=== PATIENT | female | born 1980 | race Caucasian/White ===

== ENCOUNTER 2017-02-25 13:07 | Emergency (ER) | payer MEDICARE, OTHER ==
[2017-02-25] MEDS ORDERED: KETOROLAC TROMETHAMINE 60 MG/2 ML VIAL IM ONE (13:29)
[2017-02-25 13:45] LABS: APPEARANCE,URINE CLEAR (CLEAR); COLOR,URINE YELLOW (YELLOW)
[2017-02-25 13:46] LABS: OCCULT BLOOD,URINE TRACE-INTACT (NEGATIVE); PH URINE 6.5 (5.0 - 8.0); UROBILINOGEN URINE 0.2 Eu (0.2-1.0)
[2017-02-25 13:49] LABS: BASOPHILS % 0.4 (0.0-1.5); EOSINOPHILS % 3.2 % (0.0-6.8); MEAN CORPUSCULAR HEMOGLOBIN 29.2 pg (28.0-34.0); MONOCYTES % 4.1 % (0.0-11.0); NEUTROPHILS # 7.3 # k/uL (1.4-7.7)
[2017-02-25 14:10] LABS: eGFR (African) > 60; eGFR (Non-African) > 60
[2017-02-25] MEDS ORDERED: HYDROcodone /APAP 5/325 1 EACH TABLET PO ONE (14:47)
[2017-02-25] MEDS ORDERED: SULFAMETHOXAZOLE/TRIMETHOPRIM 1 EACH TABLET PO ONE (14:47)
--- NOTE | 2017-02-25 14:56 | ED Physician Documentation ---
Abdominal Pain - HISTORIAN Historian: patient - HPI Stated Complaint: Left groin pain Chief Complaint: Abdominal Pain Onset: days ago (10) Duration: sudden-onset, persistent Timing: still present Context: denies: out of country travel, bad food, recent trauma Severity: moderate Quality: burning (with urination) Front/Back of Body, Lg (Color): 1 - pain Associated Symptoms: other (urgency and increased frequency of urination) Relieved by: nothing Further Comments: no - ROS CONST: no problems GI/: other (burning, urgency asnd frequency of urination) CVS/RESP: none EYES/ENT: none MS/SKIN/LYMPH: none NEURO/PSYCH: none - SOCIAL HX Smoking History: cigarettes Alcohol Use: occasionally Drug Use: none - FAMILY HX Family History: no significant history - PAST HX Past History: other (anxiety, bipolar, hyperlipidemia) Ischemic Bowel Risk Factors: none Other History: none Surgeries/Procedures: BLT, other (ortho, angiography) Immunizations: referred to PCP Home Medications: Ambulatory Orders Medication Instructions Recorded Phenazopyridine HCl [Pyridium] 200 mg PO TID #14 tablet 02/25/17 Sulfamethoxazole/Trimethoprim 1 each PO BID #20 tab 02/25/17 [Bactrim Ds] Allergies/Adverse Reactions: Allergies Allergy/AdvReac Type Severity Reaction Status Date / Time Latex, Natural Rubber Allergy Verified 02/25/17 14:52 Penicillins Allergy Verified 02/25/17 14:52 - VITAL SIGNS Vital Signs: Vital Signs Temp Pulse Resp BP Pulse Ox 98.4 F 74 18 109/74 98 02/25/17 15:08 02/25/17 15:08 02/25/17 15:08 02/25/17 15:08 02/25/17 15:08 - REVIEWED ASSESSMENTS Nursing Assessment Reviewed: Yes Vitals Reviewed: Yes Progress - Results/Orders Results/Orders: cbc, cmp, ua, ct abdomen/pelvis ordered - Progress Progress: pt. given bactrim ds 1 p.o. x 12, toradol 60 mg im and vicodin 5/325 mg p.o. in er with improvement in pain Critical Care Note - Critical Care Note Total Time (mins): 0 ED Results Lab/Radiology - Lab Results Lab Results: Lab Results 02/25/17 02/25/17 02/25/17 13:45 13:45 13:20 WBC 10.90 K/ul K/ul (4.00-12.00) RBC 4.57 M/ul M/ul (3.90-5.20) Hgb 13.3 g/dL g/dL (12.0-16.0) Hct 38.8 % % (34.5-46.5) MCV 85.0 fl fl (80.0-100.0) MCH 29.2 pg pg (28.0-34.0) MCHC 34.4 g/dL g/dL (30.0-36.0) RDW 14.2 % % (11.3-14.3) Plt Count 229 K/mm3 K/mm3 (130-400) Neut % (Auto) 67.4 % % (39.0-79.0) Lymph % (Auto) 23.8 % % (16.0-50.0) [place] % (Auto) 4.1 % % (0.0-11.0) Eos % (Auto) 3.2 % % (0.0-6.8) Baso % (Auto) 0.4 (0.0-1.5) Neut # (Auto) 7.3 # k/uL # k/uL (1.4-7.7) Lymph # (Auto) 2.6 # k/uL # k/uL (0.6-4.0) [place] # (Auto) 0.4 # k/uL # k/uL (0.0-0.9) Eos # (Auto) 0.3 # k/uL # k/uL (0.0-0.6) Baso # (Auto) 0.0 # k/uL # k/uL (0.0-0.5) Reactive Lymphs % 1.0 % % (0.0-5.0) Reactive Lymphs # 0.1 # k/uL # k/uL (0.0-0.8) Sodium 139 mmol/L mmol/L (136-145) Potassium 3.6 mmol/L mmol/L (3.5-5.0) Chloride 106 mmol/L mmol/L (98-110) Carbon Dioxide 24 mmol/L mmol/L (20-32) BUN 11 mg/dL mg/dL (10-26) Creatinine 0.8 mg/dL mg/dL (0.4-1.5) Estimated Creat Clear 192 Est GFR ( Amer) > 60 (60 - ) Est GFR (Non-Af Amer) > 60 (60 - ) Glucose 182 mg/dL H mg/dL (70-99) Calcium 9.0 mg/dL mg/dL (8.5-10.5) Total Bilirubin 0.3 mg/dL mg/dL (0.2-1.2) AST 21 U/L U/L (0-41) ALT 21 U/L U/L (0-45) Alkaline Phosphatase 63 U/L U/L (46-116) Total Protein 7.3 g/dL g/dL (6.0-8.5) Albumin 4.1 g/dL g/dL (3.0-5.5) Urine Color Urine Appearance Urine pH Ur Specific [place] Urine Protein Urine Ketones Urine Occult Blood Urine Nitrite Urine Bilirubin Urine Urobilinogen Ur Leukocyte Esterase Urine Glucose Urine HCG, Qual Negative (NEGATIVE) 02/25/17 13:20 WBC RBC Hgb Hct MCV MCH MCHC RDW Plt Count Neut % (Auto) Lymph % (Auto) [place] % (Auto) Eos % (Auto) Baso % (Auto) Neut # (Auto) Lymph # (Auto) [place] # (Auto) Eos # (Auto) Baso # (Auto) Reactive Lymphs % Reactive Lymphs # Sodium Potassium Chloride Carbon Dioxide BUN Creatinine Estimated Creat Clear Est GFR ( Amer) Est GFR (Non-Af Amer) Glucose Calcium Total Bilirubin AST ALT Alkaline Phosphatase Total Protein Albumin Urine Color Yellow (YELLOW) Urine Appearance Clear (CLEAR) Urine pH 6.5 (5.0 - 8.0) Ur Specific [place] 1.025 (1.010-1.030) Urine Protein 1+ mg/dL H mg/dL (NEGATIVE) Urine Ketones Negative mg/dL mg/dL (NEGATIVE) Urine Occult Blood Trace-intact H (NEGATIVE) Urine Nitrite Negative (NEGATIVE) Urine Bilirubin Negative (NEGATIVE) Urine Urobilinogen 0.2 Eu Eu (0.2-1.0) Ur Leukocyte Esterase 1+ H (NEGATIVE) Urine Glucose Negative mg/dL mg/dL (NEGATIVE) Urine HCG, Qual - Radiology Radiology Impressions: ct abdomen/pelvis neg - Orders Orders: ED Orders Category Date Time Status CT ABD & PELVIS W/O CON Stat Exams 02/25/17 Completed CBC/PLATELET/DIFF Routine Lab 02/25/17 13:45 Completed CMP Routine Lab 02/25/17 13:45 Completed UA MACRO DIP ONLY Routine Lab 02/25/17 13:20 Completed URINE CULTURE Routine Lab 02/25/17 13:20 Received URINE HCG Routine Lab 02/25/17 13:20 Completed HYDROcodone /APAP 5/325 [[place] 5/325] Med 02/25/17 14:47 Discontinued 1 each PO NOW ONE Ketorolac Tromethamine [Toradol] Med 02/25/17 13:29 Discontinued 60 mg IM NOW ONE Sulfamethoxazole/Trimethoprim [Bactrim Ds] Med 02/25/17 14:47 Discontinued 1 each PO NOW ONE Abdominal Pain Physical Exam - Physical Exam General Appearance: alert, mild distress EENT: eye inspection normal, ENT inspection normal, pharynx normal, no signs of dehydration, BETSY, no nystagmus, TM's nml NECK: normal inspection, thyroid normal, supple RESPIRATORY: no resp distress, chest non-tender, breath sounds normal CVS: reg rate & rhythm, heart sounds normal, equal pulses, no murmur, no gallop , PMI nml, no JVD, no friction rub ABDOMEN: soft, no organomegaly, normal bowel sounds, tenderness (left lower quadrant and suprapubic area). No: guarding BACK: normal inspection, no CVA tenderness SKIN: warm/dry, normal color EXTREMITIES: non-tender, normal range of motion, no evidence of injury, no edema NEURO: oriented X3, CN's nml as tested, motor nml, sensation nml, mood/affect nml, cognition normal Vital Signs: Vital Signs Temp Pulse Resp BP Pulse Ox 98.4 F 74 18 109/74 98 02/25/17 15:08 02/25/17 15:08 02/25/17 15:08 02/25/17 15:08 02/25/17 15:08 Discharge Clincal Impression: Urinary tract infection Qualifiers: Urinary tract infection type: acute cystitis Hematuria presence: with hematuria Qualified Code(s): N30.01 - Acute cystitis with hematuria Prescriptions: Phenazopyridine HCl [Pyridium] 200 mg PO TID #14 tablet Sulfamethoxazole/Trimethoprim [Bactrim Ds] 1 each PO BID #20 tab Referrals: Primary Doctor,No [Primary Care Provider] - 2 Days Home Medications: Ambulatory Orders Phenazopyridine HCl [Pyridium] 200 mg PO TID #14 tablet 02/25/17 Sulfamethoxazole/Trimethoprim [Bactrim Ds] 1 each PO BID #20 tab 02/25/17 Comments: Discharged with scripts for Bactrim DS 1 pill twice daily for 10 days and Pyridium 200 mg p.o. tid for 5 days. Condition: Stable Disposition: 01 HOME, SELF-CARE Decision to Admit: NO Decision Time: 14:46
[2017-02-25 15:10] VITALS: BP 109/74
--- NOTE | 2017-02-25 15:17 | Diagnostic Imaging Report ---
RAFFI DICKENS [facility] [address] [facility] [address] [place], [place]. [address] Report Submission Date: Feb 25, 2017 2:27:34 PM CDT Patient Study Name: ELLY GIRON Date: Feb 25, 2017 1:54:07 PM CDT Modality Type: CT\SR Gender: F Description: CT ABD & PELVIS W/O CO : 80 Institution: [facility] Physician: RAFFI DICKENS Examination: CT Abdomen/pelvis History: Abdominal discomfort Comparison exams: None available Technique: CT Abdomen/pelvis without contrast protocol. Findings: Liver, spleen, adrenal glands, kidneys, and pancreas are without irregularity. Surgical clips gallbladder fossa. Kidneys and ureters without suspicious calcification. No abnormal dilation of the ureters. Abdominal aorta with mild peripheral atherosclerotic disease. No abnormal dilation. Cardiac silhouette not enlarged. Bowel without contrast limiting evaluation. No evidence for acute mesenteric inflammation or free air. Stool throughout the large bowel limiting sensitivity. Appendix is identified and is without adjacent inflammation. Sigmoid diverticula. No adjacent inflammation. Osseous structures demonstrate degenerative changes. Likely old pubic symphysis fracture. Lung bases demonstrate mild right middle lobe linear infiltrates. No effusion Impression: No abdominal mass or acute inflammatory process. Sigmoid diverticulosis. No evidence for acute diverticulitis. No renal or ureteral calcification. No abnormal bowel dilation. Mild right middle lobe infiltrate. Electronically signed on Feb 25, 2017 2:27:34 PM CDT by: Elgin JANSEN
== END 2017-02-25 15:08 | disposition home or self-care (01) ==
LOC: ED 13:07
DX: N30.01 Acute cystitis with hematuria (principal)
CPT/HCPCS: 74176; 80053; 81002; 81025; 85025; 87086; A9270; J1885; 96372; 99283

== ENCOUNTER 2017-03-05 11:44 | Outpatient (CLI) | payer MEDICARE, OTHER ==
[2017-03-05 12:03] LABS: BASOPHILS % 0.4 (0.0-1.5); EOSINOPHILS % 4.7 % (0.0-6.8); MEAN CORPUSCULAR HEMOGLOBIN 28.9 pg (28.0-34.0); MEAN CORPUSCULAR VOLUME 83.7 fl (80.0-100.0); MONOCYTES % 3.5 % (0.0-11.0); NEUTROPHILS # 6.8 # k/uL (1.4-7.7)
[2017-03-05 12:30] LABS: eGFR (African) > 60; eGFR (Non-African) > 60
== END 2017-03-05 11:45 ==
LOC: LAB 11:44
PROVIDERS: ATTEND Nurse Practitioner Family
DX: N94.4 Primary dysmenorrhea (principal)
CPT/HCPCS: 36415; 80053; 84439; 84443; 84703; 85025; 85610; 85730

== ENCOUNTER 2017-03-11 09:39 | Outpatient (CLI) | payer MEDICARE, OTHER ==
--- NOTE | 2017-03-11 13:47 | Diagnostic Imaging Report ---
LONNIE ALMONTE (TILTROTOR CREW CHIEF) - OP [facility] [address] [facility] [address] [place], [place]. [address] Report Submission Date: Mar 11, 2017 12:19:40 PM CDT Patient Study Name: ELLY GIRON Date: Mar 11, 2017 10:06:19 AM CDT Modality Type: US Gender: F Description: TRANSVAGINAL PELVIS : 80 Institution: [facility] Physician: LONNIE ALMONTE (TILTROTOR CREW CHIEF) - OP Examination: Ultrasound pelvis History: Dysfunctional uterine bleeding Comparison exams: None available Findings: Transabdominal imaging is limited due to body habitus. Sonographic evaluation of the pelvis demonstrates uterus measuring 7.9 x 4.3 x 6.0 cm. Myometrium without gross regularity. Endometrial complex measures from 5.9 to 10.4 mm. Right ovary measures 3.0 x 2.8 x 2.6 cm. Left ovary measures 3.7 x 2.4 x 3.0 cm. Normal flow on Doppler analysis. Ovarian follicles. Impression: Prominent endometrial complex - correlate with patient's metal cycle. No evidence for pelvic mass or lesion. No myometrial abnormality. No torsion. Electronically signed on Mar 11, 2017 12:19:40 PM CDT by: Elgin JANSEN
== END 2017-03-11 09:40 ==
LOC: RAD 09:39
PROVIDERS: ATTEND Nurse Practitioner Family
DX: N93.8 Other specified abnormal uterine and vaginal bleeding (principal)
CPT/HCPCS: 76830; 76856

== ENCOUNTER 2017-03-16 11:43 | Outpatient (CLI) | payer MEDICARE, OTHER | END 2017-03-16 11:44 | LOC: CARD 11:43 | PROVIDERS: ATTEND Internal Medicine Cardiovascular Disease | DX: R07.89 Other chest pain (principal); R55 Syncope and collapse; I10 Essential (primary) hypertension; E78.5 Hyperlipidemia, unspecified; E11.9 Type 2 diabetes mellitus without complications; F17.210 Nicotine dependence, cigarettes, uncomplicated; G47.30 Sleep apnea, unspecified | CPT/HCPCS: G0463 ==

== ENCOUNTER 2017-03-24 13:43 | Outpatient (CLI) | payer MEDICARE, OTHER ==
--- NOTE | 2017-03-24 18:43 | Diagnostic Imaging Report ---
LONNIE ALMONTE (INVESTOR RELATIONS SPECIALIST) - OP [facility] [address] [facility].[address] [address] Report Submission Date: Mar 24, 2017 2:55:35 PM CDT Patient Study Name: ELLY GIRON Date: Mar 24, 2017 2:22:00 PM CDT Modality Type: CR Gender: F Description: PELVIS : 80 Institution: [facility] Physician: LONNIE ALMONTE (INVESTOR RELATIONS SPECIALIST) - OP Examination: Plain film pelvis History: Fall Comparison exams: CT scan from 25 February 2017 Findings: Single view of the pelvis demonstrates normal mineralization. Old appearing deformity involving the pubic symphysis/right pubic rami. Remaining cortical margins are without irregularity. No soft tissue abnormality. Impression: No acute pelvis osseous process. Presumed old pubic symphysis/right pubic rami fracture: present on the CT scan from 25 February 2017. Electronically signed on Mar 24, 2017 2:55:35 PM CDT by: Elgin JANSEN
--- NOTE | 2017-03-24 18:44 | Diagnostic Imaging Report ---
LONNIE ALMONTE (TECHNOLOGY APPLICATIONS CONSULTANT) - OP [facility] [place] [facility] [address] [facility].[address] [address] Report Submission Date: Mar 24, 2017 2:45:20 PM CDT Patient Study Name: ELLY GIRON Date: Mar 24, 2017 1:54:08 PM CDT Modality Type: CR Gender: F Description: SPINE : 80 Institution: [facility] [place] [facility] Physician: LONNIE ALMONTE (TECHNOLOGY APPLICATIONS CONSULTANT) - OP Examination: Plain film lumbar spine History: Fall Findings: 3 views of the lumbar spine demonstrate normal height. No anterior compression. Anterior osteophytes. Fcat degenerative changes. No soft tissue abnormalities. Impression: Degenerative changes. No compression deformity. Electronically signed on Mar 24, 2017 2:45:20 PM CDT by: Elgin JANSEN
--- NOTE | 2017-03-24 18:45 | Diagnostic Imaging Report ---
LONNIE ALMONTE (ROLLER STRUCTURAL MILL) - OP [facility] [address] [facility] [address] [address] Report Submission Date: Mar 24, 2017 3:00:51 PM CDT Patient Study Name: ELLY GIRON Date: Mar 24, 2017 1:57:59 PM CDT Modality Type: CR Gender: F Description: PELVIS : 80 Institution: [facility] Physician: LONNIE ALMONTE (ROLLER STRUCTURAL MILL) - OP Examination: Plain film sacroiliac joints History: Fall Comparison exams: CT scan dated 25 February 2017 Findings: Single view of the sacroiliac joints demonstrate normal cortical margins. No fracture. No dislocation. Margins are symmetric. No evidence for effusion. Cortical irregularity involving the pubic symphysis/right pubic rami. Impression: No acute osseous process. Presumed old pubic symphysis/right pubic rami fracture: present on the CT scan from 25 February 2017. Electronically signed on Mar 24, 2017 3:00:51 PM CDT by: Elgin JANSEN
--- NOTE | 2017-03-24 18:46 | Diagnostic Imaging Report ---
LONNIE ALMONTE (CORD TIRE BUILDER) - OP [facility] [address] [facility] [address] [place], [place]. [address] Report Submission Date: Mar 24, 2017 2:53:45 PM CDT Patient Study Name: ELLY GIRON Date: Mar 24, 2017 1:55:47 PM CDT Modality Type: CR Gender: F Description: SPINE : 80 Institution: [facility] Physician: LONNIE ALMONTE (CORD TIRE BUILDER) - OP Examination: Plain film sacrum/coccyx History: Fall Comparison exams: CT dated 25 February 2017 Findings: 3 view of the sacrum/coccyx demonstrate normal cortical margins. Sacral jewell are symmetric. No fracture. Sacroiliac joints are without evidence for fracture or fusion. Pubic symphysis/ right pubic rami demonstrates what appears to be an old fracture deformity. No abnormal angulation of the coccyx on lateral view. Impression: No sacrococcygeal acute osseous process. Presumed old pubic symphysis/right pubic rami fracture: present on the CT scan from 25 February 2017. Electronically signed on Mar 24, 2017 2:53:45 PM CDT by: Elgin JANSEN
== END 2017-03-24 13:44 ==
LOC: RAD 13:43
PROVIDERS: ATTEND Nurse Practitioner Family
DX: M54.5 Low back pain (principal)
CPT/HCPCS: 72100; 72170; 72202; 72220

== ENCOUNTER 2017-03-24 17:23 | Emergency (ER) | payer MEDICARE, OTHER ==
[2017-03-24 17:44] VITALS: BP 109/73
--- NOTE | 2017-03-24 17:44 | ED Physician Documentation ---
Low Back Pain - HISTORIAN Historian: patient - HPI Chief Complaint: Low Back Pain/ Injury History: history of chronic pain: Context: fall Where: home Further Comments: yes (36 year old female presents with complaints of low back pain. Patient states she fell down stairs this morning, was seen by PCP, completed outpatient xrays, states she came to Er for treatment of her pain . Patient states she has not taken any pain medication today. Cannot recall her medication list.) - ROS CONST: no problems CVS/RESP: none EYES/ENT: none MS/SKIN/LYMPH: none Neuro/Psych: none GI/: denies: abdominal pain - PAST HX Past History: back pain Other History: other (bipolar, depression) Allergies/Adverse Reactions: Allergies Allergy/AdvReac Type Severity Reaction Status Date / Time Latex, Natural Rubber Allergy Verified 03/24/17 17:44 Penicillins Allergy Verified 03/24/17 17:44 Home Medications: Ambulatory Orders Medication Instructions Recorded Ketorolac Tromethamine [Toradol] 10 mg PO TID #15 tablet 03/24/17 - SOCIAL HX Smoking History: cigarettes - FAMILY HX Family History: denies: none - VITAL SIGNS Vital Signs: Vital Signs Temp Pulse Resp BP Pulse Ox 37.6 F L 90 20 109/73 98 03/24/17 17:24 03/24/17 17:24 03/24/17 17:24 03/24/17 17:24 03/24/17 17:24 - REVIEWED ASSESSMENTS Nursing Assessment Reviewed: Yes Vitals Reviewed: Yes Progress - Progress Progress: Outpatient Xrays reviewed from today Will medicate with pain medication while in Er, toradol po x 5 days. Will not give narcotic or ultram as patient does not know medication list. ED Results Lab/Radiology - Radiology Radiology Impressions: Examination: Plain film sacroiliac joints History: Fall Comparison exams: CT scan dated 25 February 2017 Findings: Single view of the sacroiliac joints demonstrate normal cortical margins. No fracture. No dislocation. Margins are symmetric. No evidence for effusion. Cortical irregularity involving the pubic symphysis/right pubic rami. Impression: No acute osseous process. Presumed old pubic symphysis/right pubic rami fracture: present on the CT scan from 25 February 2017. Electronically signed on Mar 24, 2017 3:00:51 PM CDT by: Elgin Browning Examination: Plain film lumbar spine History: Fall Findings: 3 views of the lumbar spine demonstrate normal height. No anterior compression. Anterior osteophytes. Fcat degenerative changes. No soft tissue abnormalities. Impression: Degenerative changes. No compression deformity. Electronically signed on Mar 24, 2017 2:45:20 PM CDT by: Elgin Browning - Orders Orders: ED Orders Category Date Time Status Ketorolac Tromethamine [Toradol] Med 03/24/17 17:38 Discontinued 60 mg IM NOW ONE Nalbuphine HCl [Nubain] Med 03/24/17 17:43 Discontinued 10 mg IM NOW ONE Low Back Pain/Injury - Physical Exam General Appearance: mild distress EENT: eye inspection normal, BETSY Neck: non-tender, painless ROM Resp/CVS: chest non-tender, breath sounds nml, heart sounds nml, no resp. distress, lungs clear, reg. rate & rhythm Back: painless ROM, other (pain with palpation of paraspinous muscle at S1, L5) Straight Leg Raising: Negative Left, Negative Right Neuro/Psych: oriented x3, motor nml, sensation nml, mood/affect nml Skin: normal color, warm/dry, NR, INT, PAL, DR Extremities: non-tender, normal range of motion, no evidence of injury, no edema , J, [employer]W [employer]NER Discharge Clincal Impression: Acute low back pain Qualifiers: Back pain laterality: bilateral Sciatica presence: without sciatica Qualified Code(s): M54.5 - Low back pain Prescriptions: Ketorolac Tromethamine [Toradol] 10 mg PO TID #15 tablet Referrals: Whitney Valera PRN [Primary Care Provider] - 2 Days Condition: Good Disposition: 01 HOME, SELF-CARE Decision to Admit: NO Decision Time: 18:00
[2017-03-24] MEDS: NALBUPHINE HCL 10 MG/1 ML IM ONE (17:50)
[2017-03-24] MEDS: KETOROLAC TROMETHAMINE 60 MG/2 ML VIAL IM ONE (17:50)
== END 2017-03-24 18:04 | disposition home or self-care (01) ==
LOC: ED 17:23
DX: M54.5 Low back pain (principal); W19.XXXA Unspecified fall, initial encounter; Y93.9 Activity, unspecified; Y99.9 Unspecified external cause status
CPT/HCPCS: J1885; J2300; 96372; 99283

== ENCOUNTER 2017-04-20 09:03 | Outpatient (CLI) | payer MEDICARE, OTHER | END 2017-04-20 09:04 | LOC: OUT 09:03 | PROVIDERS: ATTEND General Practice | DX: N93.8 Other specified abnormal uterine and vaginal bleeding (principal); L68.0 Hirsutism | CPT/HCPCS: G0463 ==

== ENCOUNTER 2017-04-21 09:15 | Outpatient (CLI) | payer MEDICARE, OTHER ==
[2017-04-21 09:47] LABS: BASOPHILS % 0.4 (0.0-1.5); EOSINOPHILS % 5.2 % (0.0-6.8); MEAN CORPUSCULAR HEMOGLOBIN 29.2 pg (28.0-34.0); MEAN CORPUSCULAR VOLUME 84.8 fl (80.0-100.0); MONOCYTES % 4.1 % (0.0-11.0); NEUTROPHILS # 6.1 # k/uL (1.4-7.7)
[2017-04-21 10:17] LABS: eGFR (African) > 60; eGFR (Non-African) > 60
== END 2017-04-21 09:16 ==
LOC: LAB 09:15
PROVIDERS: ATTEND General Practice
DX: N93.8 Other specified abnormal uterine and vaginal bleeding (principal)
CPT/HCPCS: 36415; 80053; 82627; 84402; 85025; 85610; 85730

== ENCOUNTER 2017-04-27 13:01 | Outpatient (CLI) | payer MEDICARE, OTHER | END 2017-04-27 13:15 | LOC: CARD 13:01 | PROVIDERS: ATTEND Internal Medicine Cardiovascular Disease | DX: R55 Syncope and collapse (principal); I10 Essential (primary) hypertension; E78.5 Hyperlipidemia, unspecified; E11.9 Type 2 diabetes mellitus without complications; F17.210 Nicotine dependence, cigarettes, uncomplicated; G47.30 Sleep apnea, unspecified | CPT/HCPCS: G0463 ==

== ENCOUNTER 2017-05-17 09:56 | Emergency (ER) | payer MEDICARE, OTHER ==
[2017-05-17] MEDS ORDERED: KETOROLAC TROMETHAMINE 60 MG/2 ML VIAL IM ONE (10:12)
[2017-05-17 10:24] LABS: BASOPHILS % 0.4 (0.0-1.5); EOSINOPHILS % 6.9 % (0.0-6.8); MEAN CORPUSCULAR VOLUME 85.2 fl (80.0-100.0); MONOCYTES % 4.7 % (0.0-11.0); NEUTROPHILS # 4.3 # k/uL (1.4-7.7)
[2017-05-17] MEDS ORDERED: MAGNESIUM CITRATE 296 ML BOTTLE PO ONE (10:44)
[2017-05-17 10:45] LABS: eGFR (African) > 60; eGFR (Non-African) > 60
--- NOTE | 2017-05-17 10:51 | ED Physician Documentation ---
Abdominal Pain - HISTORIAN Historian: patient - HPI Stated Complaint: LLQ abd pain Chief Complaint: Abdominal Pain Onset: hours Duration: constant Timing: worse Context: denies: out of country travel, bad food, recent trauma Severity: severe Quality: pain Associated Symptoms: none Exacerbated by: nothing Relieved by: nothing Further Comments: yes (36 year old female patient brought in by EMS for complaints of abdominal pain. Patient is 5 days status post Laproscopic abd hyst by Dr Armenta. Patient states she has been taking her percocet every 6 hours.) - ROS CONST: no problems GI/: constipation (small BM since surgery) CVS/RESP: none EYES/ENT: none MS/SKIN/LYMPH: none NEURO/PSYCH: none - SOCIAL HX Smoking History: cigarettes - FAMILY HX Family History: denies: none - PAST HX Past History: GERD, other (depression, anxiety) Surgeries/Procedures: hysterectomy (5 days ago) Allergies/Adverse Reactions: Allergies Allergy/AdvReac Type Severity Reaction Status Date / Time Latex, Natural Rubber Allergy Verified 05/17/17 10:13 Penicillins Allergy Verified 05/17/17 10:13 - VITAL SIGNS Vital Signs: Vital Signs Temp Pulse Resp BP Pulse Ox 98.2 F 72 15 113/83 98 05/17/17 11:06 05/17/17 11:06 05/17/17 11:06 05/17/17 11:06 05/17/17 11:06 - REVIEWED ASSESSMENTS Nursing Assessment Reviewed: Yes Vitals Reviewed: Yes Progress - Progress Progress: Medicated for pain with toradol IM. Acute abd series shows moderate constipation. Magnesium citrate 150ml given in Er. Instructed patient to repeat dose in AM if no BM. security services specialist contacted for assistance with ride home. ED Results Lab/Radiology - Lab Results Lab Results: Lab Results 05/17/17 05/17/17 10:15 10:15 WBC 8.20 K/ul K/ul (4.00-12.00) RBC 4.57 M/ul M/ul (3.90-5.20) Hgb 13.3 g/dL g/dL (12.0-16.0) Hct 38.9 % % (34.5-46.5) MCV 85.2 fl fl (80.0-100.0) MCH 29.0 pg pg (28.0-34.0) MCHC 34.1 g/dL g/dL (30.0-36.0) RDW 12.8 % % (11.3-14.3) Plt Count 350 K/mm3 K/mm3 (130-400) Neut % (Auto) 52.9 % % (39.0-79.0) Lymph % (Auto) 33.8 % % (16.0-50.0) [place] % (Auto) 4.7 % % (0.0-11.0) Eos % (Auto) 6.9 % H % (0.0-6.8) Baso % (Auto) 0.4 (0.0-1.5) Neut # (Auto) 4.3 # k/uL # k/uL (1.4-7.7) Lymph # (Auto) 2.8 # k/uL # k/uL (0.6-4.0) [place] # (Auto) 0.4 # k/uL # k/uL (0.0-0.9) Eos # (Auto) 0.6 # k/uL # k/uL (0.0-0.6) Baso # (Auto) 0.0 # k/uL # k/uL (0.0-0.5) Reactive Lymphs % 1.3 % % (0.0-5.0) Reactive Lymphs # 0.1 # k/uL # k/uL (0.0-0.8) Sodium 137 mmol/L mmol/L (136-145) Potassium 3.5 mmol/L mmol/L (3.5-5.1) Chloride 103 mmol/L mmol/L (98-107) Carbon Dioxide 27 mmol/L mmol/L (22-30) BUN 7 mg/dL mg/dL (7-17) Creatinine 1.00 mg/dL mg/dL (0.52-1.04) Estimated Creat Clear 171 Est GFR ( Amer) > 60 (60 - ) Est GFR (Non-Af Amer) > 60 (60 - ) Glucose 120 mg/dL H mg/dL (74-106) Calcium 8.8 mg/dL mg/dL (8.4-10.2) Total Bilirubin 0.1 mg/dL L mg/dL (0.2-1.3) AST 16 U/L U/L (15-46) ALT 23 U/L U/L (13-69) Alkaline Phosphatase 51 U/L U/L (38-126) Total Protein 6.8 g/dL g/dL (6.3-8.2) Albumin 3.4 g/dL L g/dL (3.5-5.0) - Orders Orders: ED Orders Category Date Time Status ABDOMEN COMPLETE [RAD] Stat Exams 05/17/17 Completed CBC/PLATELET/DIFF Stat Lab 05/17/17 10:15 Completed CMP Stat Lab 05/17/17 10:15 Completed UA W/MICRO IF INDICATED Stat Lab 05/17/17 10:02 Ordered Ketorolac Tromethamine [Toradol] Med 05/17/17 10:12 Discontinued 60 mg IM NOW ONE Magnesium Citrate [Citrate of Magnesia] Med 05/17/17 10:44 Discontinued 150 ml PO NOW ONE Abdominal Pain Physical Exam - Physical Exam General Appearance: mild distress EENT: eye inspection normal, BETSY RESPIRATORY: no resp distress, chest non-tender, breath sounds normal CVS: reg rate & rhythm, heart sounds normal, equal pulses, no murmur, no gallop , PMI nml, no JVD, no friction rub, 24 ABDOMEN: soft, no organomegaly, normal bowel sounds, no abdominal bruit, no distension, tenderness (generalized; worse in LLQ), other (umbilical incision with mild erythema; no drainage. 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
[2017-05-17 11:08] VITALS: BP 113/83
--- NOTE | 2017-05-17 11:20 | Diagnostic Imaging Report ---
SUHAS VILLALTA (JOSESITO) - ER [facility] [address] [facility] [address] [address] Report Submission Date: May 17, 2017 10:47:40 AM [employer] Patient Study Name: ELLY GIRON Date: May 17, 2017 10:23:00 AM [employer] Modality Type: CR Gender: F Description: ABDOMEN : 80 Institution: [facility] Physician: SUHAS VILLALTA) - ER Examination: Obstruction series History: Abdominal discomfort Findings: 4 views obtained of the abdomen. No abnormal dilation of the large or small bowel. Air and stool throughout the large bowel. No suspicious calcification projecting over the renal fossa or the lower pelvic region. Surgical clips right upper quadrant. Osseous structures demonstrates deformity involving the right pubic symphysis - described on previous pelvic x- ray reports and likely chronic. Impression: No obstruction. No suspicious calcifications by plain film sensitivity. Electronically signed on May 17, 2017 10:47:40 AM [employer] by: Elgin JANSEN
== END 2017-05-17 11:06 | disposition home or self-care (01) ==
LOC: ED 09:56
DX: G89.18 Other acute postprocedural pain (principal); K59.00 Constipation, unspecified
CPT/HCPCS: 74020; 80053; 85025; J1885; 96372; 99283

== ENCOUNTER 2017-05-18 09:20 | Outpatient (CLI) | payer MEDICARE, OTHER ==
[2017-05-17 11:08] VITALS: BP 113/83
== END 2017-05-18 10:00 ==
LOC: OUT 09:20
PROVIDERS: ATTEND General Practice
DX: Z09 Encounter for follow-up examination after completed treatment for conditions other than malignant neoplasm (principal); Z90.710 Acquired absence of both cervix and uterus
CPT/HCPCS: G0463

== ENCOUNTER 2017-06-15 08:30 | Outpatient (CLI) | payer MEDICARE, OTHER | END 2017-06-15 10:36 | LOC: OUT 08:30 | PROVIDERS: ATTEND General Practice | DX: Z48.89 Encounter for other specified surgical aftercare (principal) | CPT/HCPCS: G0463 ==

== ENCOUNTER 2017-07-10 10:45 | Emergency (ER) | payer MEDICARE, OTHER ==
--- NOTE | 2017-07-10 10:55 | ED Physician Documentation ---
Fall - HISTORIAN Historian: patient, paramedics - [facility] Stated Complaint: Left Shoulder Injury Chief Complaint: Fall Additional Information: fell slick tile floor c/o lt scapular pain.denies other pain head-neck=ok Onset: today (approx 940 am) Where: home (slick floor) Context: slipped, lost balance r: moderate Associated Symptoms:: no loss of consciousness Location of Pain/Injury: L shoulder. denies: head, neck Injury to Right Extremity: none Injury to Left Extremity: other (scapula) - ROS CONST: no problems, other (chronic multi psyche problems-appears highly medicated) NEURO: depression. denies: dizziness, anxiety MS/SKIN/LYMPH: denies: weakness, numbness, neck pain, back pain EYES/ENT: none CVS/RESP: denies: chest pain, shortness of breath GI/: denies: nausea, vomiting ( bipolar pananoid schizo ptsd depression anxiety panic attacks) - PAST HX Past History: other (SEEE ABOVE) Allergies/Adverse Reactions: Allergies Allergy/AdvReac Type Severity Reaction Status Date / Time Latex, Natural Rubber Allergy Verified 07/10/17 10:51 Penicillins Allergy Verified 07/10/17 10:51 Home Medications: Ambulatory Orders Medication Instructions Recorded Bupropion HCl [Bupropion Xl] 300 mg PO DAILY 06/26/17 Esomeprazole Magnesium [Nexium] 40 mg PO DAILY 06/26/17 Hydroxyzine Pamoate [Vistaril] 50 mg PO QID 06/26/17 LORazepam [Ativan] 0.5 mg PO TID 06/26/17 [place] Carbonate [[place] 300 mg PO DAILY 06/26/17 Carbonate ER] Lurasidone HCl [Latuda] 40 mg PO DAILY 06/26/17 Lurasidone HCl [Latuda] 60 mg PO DAILY 06/26/17 Sertraline HCl [Zoloft] 100 mg PO BID 06/26/17 Zolpidem Tartrate 10 mg PO HS 06/26/17 - SOCIAL HX Smoking History: cigarettes. denies: non-smoker Alcohol Use: occasionally Drug Use: none - FAMILY HX Family History: no significant history - VITAL SIGNS Vital Signs: Vital Signs Temp Pulse Resp BP Pulse Ox 97 F L 73 16 129/83 98 07/10/17 10:45 07/10/17 10:45 07/10/17 10:45 07/10/17 10:45 07/10/17 10:45 - REVIEWED ASSESSMENTS Nursing Assessment Reviewed: Yes Vitals Reviewed: Yes ED Results Lab/Radiology - Radiology Radiology Impressions: XRAY REVEALS BONE CYST UPPER HUMERUS LT UPPER-PT ADVISED REQUIRES DEFINITE F/U W / CANCER SPECIALIST - Orders Orders: ED Orders Category Date Time Status SHOULDER BLADE X-RAY [SCAPULA COMPLETE] [RAD] Stat Exams 07/10/17 Ordered Fall Physical Exam - Physical Exam General Appearance: mild distress, moderate distress Head: non-tender, no swelling Neck: non-tender, painless ROM Eye: BETSY, EOMI ENT: nml external inspection Resp/CVS: chest non-tender, breath sounds nml, no resp. distress, other Abdomen: soft Neuro: oriented x3, depressed mood/affect Back: other (lt scapula tender-no sig swelling some AC joint and STERNO CLAVICULAR JOINT) - [place] Coma Score Eyes Open: Spontaneous Speech: Oriented Motor: Obeys Commands Discharge Clincal Impression: FALL W/ PAIN LT SCAPULA AND SHOULDER, BONE CYST LT HUMERUS-POSS CANCER Referrals: Whitney Valera PRN [Primary Care Provider] - 2 Days Comments: PT ADVISED LT HUMERUS BONE CYST-POSSIBLE CANCEROUS-DEFINITELY REQUIRES EVAL BY CANCER SPECIALISTS Condition: Fair Disposition: 01 HOME, SELF-CARE Decision to Admit: NO Decision Time: 12:21
[2017-07-10] MEDS ORDERED: IBUPROFEN 400 MG TABLET PO ONE ×2 (11:10→11:12)
--- NOTE | 2017-07-10 11:40 | Diagnostic Imaging Report ---
JACOBY SULLIVAN [facility] [address] [facility] [address] [place] [address]. 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 A small lytic lesion may be present in the proximal left humeral shaft. Impression: 1. Small lytic lesion in proximal left humeral shaft, indeterminate for malignancy. Recommend left humerus radiographs for further evaluation and comparison with any prior films of this region. Electronically signed on Jul 10, 2017 11:18:20 AM SUPERVISOR [employer]ITION[employer] YE[employer] by: Tho JANSEN
--- NOTE | 2017-07-10 12:01 | Diagnostic Imaging Report ---
JACOBY SULLIVAN [facility] [address] [facility] [address] [id number] Report Submission Date: Jul 10, 2017 11:56:08 AM AIRBRUSH ARTIST TECHNICAL Patient Study Name: ELLY GIRON Date: Jul 10, 2017 11:33:00 AM AIRBRUSH ARTIST TECHNICAL Modality Type: CR Gender: F Description: UPPER EXTREMITY : 80 Institution: [facility] Physician: JACOBY SULLIVAN Left chest 2 views History: Lytic lesion Findings: A small proximal left humeral shaft lytic lesion is confirmed. There is no fracture or dislocation. Impression: Left humeral shaft of lytic lesion. Differential includes bone cyst , metastatic disease, and multiple myeloma. Further clinical evaluation is recommended. Electronically signed on Jul 10, 2017 11:56:08 AM AIRBRUSH ARTIST TECHNICAL by: Tho JANSEN
[2017-07-10 12:21] VITALS: BP 118/78
== END 2017-07-10 12:20 | disposition home or self-care (01) ==
LOC: ED 10:45
DX: M25.512 Pain in left shoulder (principal); R93.6 Abnormal findings on diagnostic imaging of limbs; W01.0XXA Fall on same level from slipping, tripping and stumbling without subsequent striking against object, initial encounter; Y92.009 Unspecified place in unspecified non-institutional (private) residence as the place of occurrence of the external cause
CPT/HCPCS: 73010; 73060; 99283

== ENCOUNTER 2017-07-14 08:33 | Outpatient (CLI) | payer MEDICARE, OTHER ==
[2017-07-14 10:56] LABS: eGFR (African) > 60; eGFR (Non-African) > 60
== END 2017-07-14 08:34 ==
LOC: LAB 08:33
PROVIDERS: ATTEND Psychiatry & Neurology Psychiatry
DX: Z79.899 Other long term (current) drug therapy (principal)
CPT/HCPCS: 36415; 80048; 80061; 80178; 83036; 84443

== ENCOUNTER 2017-07-20 10:54 | Emergency (ER) | payer MEDICARE, OTHER ==
[2017-07-20 11:09] VITALS: BP 148/100
--- NOTE | 2017-07-20 11:13 | ED Physician Documentation ---
Sore Throat/Dental Pain - HISTORIAN Historian: patient - HPI Stated Complaint: Dental pain Chief Complaint: Dental Pain Additional Information: Patient has started to have some right lower dental pain. Has been fractured for some time. Patient has seen dentist to get all of her teeth pulled. Is in the process of getting preprocedure tests done. Has had a fever to 101.3, having some chills. Has not been eating or drinking well. Onset: days ago (2 days) Context: Fractured Tooth Associated Symptoms: fever, chills. denies: sore throat Worsened By: heat, cold - ROS CONST: no problems - PAST HX Past History: other (Shoulder pain, anxiety, bipolar, schizophrenic, CAD, boarderline diabetic) Immunizations: referred to PCP Allergies/Adverse Reactions: Allergies Allergy/AdvReac Type Severity Reaction Status Date / Time Latex, Natural Rubber Allergy Verified 07/20/17 11:09 Penicillins Allergy Verified 07/20/17 11:09 Home Medications: Ambulatory Orders Medication Instructions Recorded Bupropion HCl [Bupropion Xl] 300 mg PO DAILY 06/26/17 Esomeprazole Magnesium [Nexium] 40 mg PO DAILY 06/26/17 Hydroxyzine Pamoate [Vistaril] 50 mg PO QID 06/26/17 LORazepam [Ativan] 0.5 mg PO TID 06/26/17 [place] Carbonate [[place] 300 mg PO DAILY 06/26/17 Carbonate ER] Lurasidone HCl [Latuda] 40 mg PO DAILY 06/26/17 Lurasidone HCl [Latuda] 60 mg PO DAILY 06/26/17 Sertraline HCl [Zoloft] 100 mg PO BID 06/26/17 Zolpidem Tartrate 10 mg PO HS 06/26/17 Clindamycin HCl [Cleocin HCl] 300 mg PO QID #40 capsule 07/20/17 Clindamycin HCl [Cleocin] 300 mg PO QID #40 capsule 07/20/17 - SOCIAL HX Smoking History: less than 1 pack/day (1/2 ppd) Alcohol Use: rarely Drug Use: none - FAMILY HX Family History: Yes (CAD, DM, cancer- leukemia, breast, lung, ovarian) - VITAL SIGNS Vital Signs: Vital Signs Temp Pulse Resp BP Pulse Ox 97.4 F L 99 H 18 148/100 99 07/20/17 10:57 07/20/17 10:57 07/20/17 10:57 07/20/17 10:57 07/20/17 10:57 - REVIEWED ASSESSMENTS Nursing Assessment Reviewed: Yes Vitals Reviewed: Yes Dental Pain Physical Exam - EXAM General Appearance: alert, mild distress Head/Neck: head nml inspection, trachea midline, no lymphadenopathy, thyroid nml Mouth/Throat: lips nml, pharynx nml, voice nml, no air way problems, dental tenderness, gum swelling around teeth (right lower area), widespread dental decay. No: pharyngeal erythema Ear/Nose: nml inspection Respiratory: no resp. distress, breath sounds nml CVS: reg. rate & rhythm, heart sounds nml Skin: warm/dry, normal color Neuro/Psych: No: weakness Discharge Clincal Impression: Pain, dental Prescriptions: Clindamycin HCl [Cleocin HCl] 300 mg PO QID #40 capsule Clindamycin HCl [Cleocin] 300 mg PO QID #40 capsule Referrals: Whitney Valera PRN [Primary Care Provider] - 2 Days Additional Instructions: Gargle with salt water. Continue to get the tests done so you can get your dental procedure done. If you need further pain medication to follow-up with your primary provider. Condition: Stable Disposition: 01 HOME, SELF-CARE Decision to Admit: NO Decision Time: 11:19
[2017-07-20] MEDS: KETOROLAC TROMETHAMINE 60 MG/2 ML VIAL IM ONE (11:37)
== END 2017-07-20 11:54 | disposition home or self-care (01) ==
LOC: ED 10:54
DX: K08.89 Other specified disorders of teeth and supporting structures (principal)
CPT/HCPCS: 96372; 99282; J1885

== ENCOUNTER 2017-07-23 20:38 | Emergency (ER) | payer MEDICARE, OTHER ==
--- NOTE | 2017-07-23 20:59 | ED Physician Documentation ---
Overdose - HISTORIAN Historian: patient - HPI Chief Complaint: Overdose Additional Information: 36yo white female who states that she has had problems with anxiety. This evening had a bad anxiety attack. Normally takes Ativan 1mg tab, 3 tabs TID. States that when she has an attack she will take 1-2 extra tablets. With this attack took about 20 tablets. Immediately patient noted that it was not that right thing to do and drank two bottles of water and stuck her finger down her throat to cause emisis. Stated that a lot of the pill came up and where not disolved. Patient denies any suicide attempts or thoughts. "Just wanted my anxiety to go away". Has not taken any ativan prior to taking the twenty pills. Has not taken any of her medications today. Patient had an MRI scan done today which she believes precipitated her panic attack. Last EtOH was 2 beers yesterday. None today. Denies nay street drugs. Is not having any problems at this time. Is being followed at [facility] for her psychiatric problems. 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 denies: suicide attempt - ROS CONST: no problems NEURO/PSYCH: anxiety, depression (stable). denies: headache CVS/RESP: none GI/: denies: nausea, vomiting, abdominal pain - PAST HX Psychiatric problems: bipolar disorder, other (PTSD, chronic anxiety, bipolar) Lung, Cardiac, DM: cardiac disease (s/p [place] in 2015), diabetes Type 2 ( boarderline, controlled with diet), hypertension. denies: asthma Surgical History: cholecystectomy, other (ORIF L ankle fracture, LISA) Immunizations: denies: influenza, pneumovax Allergies/Adverse Reactions: Allergies Allergy/AdvReac Type Severity Reaction Status Date / Time Penicillins Allergy Severe Anaphylaxis Verified 07/24/17 00:40 Latex, Natural Rubber Allergy Intermediate Hives Verified 07/24/17 00:40 Home Medications: Ambulatory Orders Medication Instructions Recorded Bupropion HCl [Bupropion Xl] 300 mg PO DAILY 06/26/17 Esomeprazole Magnesium [Nexium] 40 mg PO DAILY 06/26/17 Hydroxyzine Pamoate [Vistaril] 50 mg PO QID 06/26/17 LORazepam [Ativan] 1 mg PO TID 06/26/17 [place] Carbonate [[place] 600 mg PO DAILY 06/26/17 Carbonate ER] Lurasidone HCl [Latuda] 40 mg PO DAILY 06/26/17 Lurasidone HCl [Latuda] 60 mg PO DAILY 06/26/17 Sertraline HCl [Zoloft] 100 mg PO BID 06/26/17 Zolpidem Tartrate 10 mg PO HS 06/26/17 Clindamycin HCl [Cleocin HCl] 300 mg PO QID #40 capsule 07/20/17 - Social HX Smoking History: less than 1 pack/day (1/2 ppd) Marital Status: single Drug Use: none - Family HX Family HX: mental illness (bipolar,) - VITAL SIGNS Vital Signs: Vital Signs Temp Pulse Resp BP Pulse Ox 98.1 F 84 18 136/90 96 07/23/17 20:38 07/24/17 04:59 07/24/17 00:00 07/24/17 00:00 07/24/17 00:00 - REVIEWED ASSESSMENTS Nursing Assessment Reviewed: Yes Vitals Reviewed: Yes Progress - Progress Progress: 21:52 Patient remains stable, SAo2 97% on RA. Mentation is normal, patient is awake and alert, Ox3 01:23 Patient is stable, easily aroused and VS stable 05:43 Patient is now complaining of a right ear ache, no drainaged noted. Patient still stable with no respiratory problems. ED Results Lab/Radiology - Lab Results Lab Results: Lab Results 07/23/17 07/23/17 21:33 21:33 WBC 11.40 K/ul K/ul (4.00-12.00) RBC 4.50 M/ul M/ul (3.90-5.20) Hgb 13.4 g/dL g/dL (12.0-16.0) Hct 40.0 % % (34.5-46.5) MCV 88.8 fl fl (80.0-100.0) MCH 29.9 pg pg (28.0-34.0) MCHC 33.6 g/dL g/dL (30.0-36.0) RDW 13.3 % % (11.3-14.3) Plt Count 352 K/mm3 K/mm3 (130-400) Neut % (Auto) 59.4 % % (39.0-79.0) Lymph % (Auto) 29.6 % % (16.0-50.0) [place] % (Auto) 4.6 % % (0.0-11.0) Eos % (Auto) 4.4 % % (0.0-6.8) Baso % (Auto) 0.5 (0.0-1.5) Neut # (Auto) 6.7 # k/uL # k/uL (1.4-7.7) Lymph # (Auto) 3.4 # k/uL # k/uL (0.6-4.0) [place] # (Auto) 0.5 # k/uL # k/uL (0.0-0.9) Eos # (Auto) 0.5 # k/uL # k/uL (0.0-0.6) Baso # (Auto) 0.0 # k/uL # k/uL (0.0-0.5) Reactive Lymphs % 1.6 % % (0.0-5.0) Reactive Lymphs # 0.2 # k/uL # k/uL (0.0-0.8) Sodium 140 mmol/L mmol/L (136-145) Potassium 3.6 mmol/L mmol/L (3.5-5.1) Chloride 100 mmol/L mmol/L (98-107) Carbon Dioxide 26 mmol/L mmol/L (22-30) BUN 24 mg/dL H mg/dL (7-17) Creatinine 0.90 mg/dL mg/dL (0.52-1.04) Estimated Creat Clear 192 Est GFR ( Amer) > 60 (60 - ) Est GFR (Non-Af Amer) > 60 (60 - ) Glucose 131 mg/dL H mg/dL (74-106) Calcium 11.0 mg/dL H mg/dL (8.4-10.2) Total Bilirubin 0.3 mg/dL mg/dL (0.2-1.3) AST 23 U/L U/L (15-46) ALT 37 U/L U/L (13-69) Alkaline Phosphatase 51 U/L U/L (38-126) Total Protein 7.7 g/dL g/dL (6.3-8.2) Albumin 4.1 g/dL g/dL (3.5-5.0) - Orders Orders: ED Orders Category Date Time Status Continuous EKG monitoring Q30M Care 07/23/17 22:00 Active Neuro checks [Monitor for changes in mental ] Q2H Care 07/23/17 21:[address] IV Lock 1T Care 07/23/17 21:02 Active CBC/PLATELET/DIFF Routine Lab 07/23/17 21:33 Completed CMP Routine Lab 07/23/17 21:33 Completed URINALYSIS Routine Lab 07/23/17 21:09 Ordered Urine drug screen [DRUG SCREEN URINE MEDICAL ONLY] Lab 07/23/17 Ordered Routine Acetaminophen [Tylenol] Med 07/24/17 05:41 Discontinued 650 mg PO NOW ONE Overdose Physical Exam - Physical Exam General Appearance: no acute distress, alert ENT: nml ENT inspection, pharynx nml, nml gag reflex, other (sclerosis of the TM bilaterally, no erythema) Eyes: PERRL, EOM's intact Suicide Attempts: denies Orientation: nml x3 Cranial Nerves: CN's intact as tested Sensory, Motor: nml motor response, nml sensory response Neck: normal inspection, thyroid normal, supple CVS: reg rate & rhythm, heart sounds normal, equal pulses, no murmur, no gallop Abdomen: non-tender, no organomegaly, nml bowel sounds, no distention Skin: warm/dry Discharge Clincal Impression: Ear pain, right Accidental overdose Qualifiers: Encounter type: initial encounter Qualified Code(s): T50.901A - Poisoning by unspecified drugs, medicaments and biological substances, accidental ( unintentional), initial encounter Referrals: Whitney Valera, PRN [Primary Care Provider] - 2 Days Additional Instructions: TAKE ONLY THE PRESCRIBED AMOUNT OF ALL OF YOUR MEDICATIONS. Home and rest today. Do not take any further alprazolam until noon. If you have any further problems to see Solange Valera or return to the ED. Take Tylenol as needed for your ear pain. Condition: Stable Disposition: HOME, SELF-CARE Decision to Admit: NO Date of Decison to Admit: 07/24/17 Decision Time: 05:47
[2017-07-23 21:37] LABS: BASOPHILS % 0.5 (0.0-1.5); EOSINOPHILS % 4.4 % (0.0-6.8); MEAN CORPUSCULAR HEMOGLOBIN 29.9 pg (28.0-34.0); MEAN CORPUSCULAR VOLUME 88.8 fl (80.0-100.0); MONOCYTES % 4.6 % (0.0-11.0); NEUTROPHILS # 6.7 # k/uL (1.4-7.7)
[2017-07-23 21:50] LABS: eGFR (African) > 60; eGFR (Non-African) > 60
[2017-07-24] MEDS ORDERED: ACETAMINOPHEN 325 MG TABLET PO ONE (05:41)
[2017-07-24 07:05] VITALS: BP 120/78
[2017-07-24 08:55] LABS: APPEARANCE,URINE CLOUDY (CLEAR); COLOR,URINE YELLOW (YELLOW); OCCULT BLOOD,URINE NEGATIVE (NEGATIVE); UROBILINOGEN URINE 0.2 Eu (0.2-1.0)
[2017-07-24 08:56] LABS: CANNABINOIDS NON NEGATIVE ng/mL (< 50); METHYLENEDIOXYMETHAMPHETAMINE NEGATIVE ng/mL (<500)
[2017-07-27 11:52] LABS: CANNABINOIDS CONFIRMATION Negative ng/mL (<15)
== END 2017-07-24 06:32 | disposition home or self-care (01) ==
LOC: ED 20:38
DX: T42.4X1A Poisoning by benzodiazepines, accidental (unintentional), initial encounter (principal); Y92.9 Unspecified place or not applicable
CPT/HCPCS: 80053; 81002; 85025; 99282; 99283; G0481; 80377; S1016